=== PATIENT | female | born 2000 | race Caucasian/White ===

== ENCOUNTER 2019-07-18 19:05 | Outpatient (CLI) | payer OTHER ==
[2019-07-18 19:50] LABS: BACTERIA (WET MOUNT) 4+ BACTERIA SEEN; EPITHELIALS (WET MOUNT) 4+ EPITHELIALS SEEN; RBCS (WET MOUNT) 1+ RBCS SEEN; T.VAGINALIS (WET MOUNT) NO TRICHOMONAS SEEN; WBCS (WET MOUNT) 1+ WBCS SEEN; YEAST (WET MOUNT) YEAST SEEN
[2019-07-18 19:54] LABS: APPEARANCE,URINE CLEAR; BILIRUBIN,URINE NEGATIVE (NEGATIVE); COLOR,URINE YELLOW; GLUCOSE, URINE NEGATIVE (NEGATIVE); KETONES,URINE 80 mg/dL (NEGATIVE); LEUKOCYTE ESTERASE,URINE LARGE (NEGATIVE); NITRITE,URINE NEGATIVE (NEGATIVE); PROTEIN,URINE NEGATIVE (NEGATIVE); URINE SPECIFIC GRAVITY 1.009; UROBILINOGEN,URINE NEGATIVE mg/dL (<2.0)
[2019-07-18 20:15] LABS: URINE AMPHETAMINES SCREEN NEGATIVE; URINE BARBITURATES SCREEN NEGATIVE; URINE BENZODIAZEPINES SCREEN NEGATIVE; URINE COCAINE SCREEN NEGATIVE; URINE MARIJUANA (THC) SCREEN NEGATIVE; URINE METHADONE SCREEN NEGATIVE; URINE PHENCYCLIDINE SCREEN NEGATIVE
[2019-07-18 21:50] LABS: CHLAM PCR NOT DETECTED (NOT DETECT)
--- NOTE | 2019-07-18 23:53 | RADIOLOGY REPORT (SQ) ---
US BIOPHYSICAL PROFILE WITHOUT NON STRESS TEST EXAM DATE: 07/18/2019 12:00 AM [facility] [employer] HISTORY: tachycardia COMPARISON: None. TECHNIQUE: Grayscale and color Doppler ultrasound images of the pelvis were obtained. FINDINGS: Biophysical profile is as follows: Movement - 2 Tone - 2 Breathing - 2 Fluid - 2 heart rate is 173 bpm. Amniotic fluid index is 12.3 cm. Placenta is anterior. Fetus is in vertex orientation. IMPRESSION: Single live intrauterine with normal biophysical profile.
== END 2019-07-19 00:07 | disposition home or self-care (01) ==
LOC: LC 19:05
PROVIDERS: ATTEND Obstetrics & Gynecology Gynecology
PROC: 4A1HXCZ Monitoring of Products of Conception, Cardiac Rate, External Approach (ICD-10-PCS; principal; 2019-07-18)
DX: O47.03 False labor before 37 completed weeks of gestation, third trimester (principal); O36.8330 Maternal care for abnormalities of the fetal heart rate or rhythm, third trimester, not applicable or unspecified; Z3A.28 28 weeks gestation of pregnancy
CPT/HCPCS: 59899; 87210; 81001; 80307; 87491; 87591; 76819; Q0114